=== PATIENT | male | born 2005 | race Caucasian/White ===

== ENCOUNTER 2024-05-09 14:29 | Emergency (ER) | payer BC, SELFPAY ==
[2024-05-09 14:44] VITALS: BP 120/57; PULSE 108; RESP 16; TEMP 36.6; O2SAT 100
--- NOTE | 2024-05-09 14:53 | ED.EYEPROB ---
HPI - Eye Problem General Chief complaint: Eye Problems Stated complaint: Eye Infection Time Seen by Provider: 05/09/24 14:53 Source: patient, RN notes reviewed and old records reviewed Mode of arrival: ambulatory Limitations: no limitations History of Present Illness HPI Narrative: 18-year-old male to Express Care for complaint of left eye irritation, redness, drainage for 2 days. Patient denies injury, foreign body, recent illness, visual changes, pertinent medical history. Patient resting comfortably on exam table in no acute distress. Respirations even and nonlabored. Related Data Home Medications Medication Instructions Recorded Confirmed insulin lispro 100 unit/mL 1 sliding scale dose subcut 05/09/24 05/09/24 subcutaneous cartridge USEASDIRECTD Allergies Allergy/AdvReac Type Severity Reaction Status Date / Time No Known Allergies Allergy Verified 05/09/24 14:42 Review of Systems Review of Systems: All systems reviewed & are unremarkable except as noted in HPI and below Constitutional: Constitutional: Reports no additional constitutional complaints Eyes: Eyes: Reports as per HPI, Reports eye discharge ( Left) and Reports irritation ( left) ENT: Reports system reviewed and no additional complaints, except as documented Cardiovascular: Cardiovascular: Reports no additional cardiovascular complaints, Denies chest pain and Denies dyspnea Respiratory: Respiratory: Reports no additional respiratory complaints, Denies cough and Denies dyspnea Musculoskeletal: Musculoskeletal: Reports no additional musculoskeletal complaints Neurologic: Reports system reviewed and no additional complaints, except as documented Psychiatric: Psychiatric: Reports no additional psychiatric complaints PMFSH Comments At the time of my signature, I reviewed and agree with the nursing past medical, surgical, social, and family history. There is no relevant family history pertinent to the patient complaint. Exam Const: General: cooperative, healthy appearing, no acute distress, alert, uncomfortable and well nourished Nutritional Appearance: well nourished Orientation/consciousness: patient oriented x3 Limitations: no limitations HENMT: Head: normal to inspection Ears: external ears normal Face/Nose/Sinus: Normal external nose present, Normal nares present, normal facial exam, No erythema and No edema Face and sinus: normal facial exam, no erythema and no edema Mouth: Yes Normal oral and palatal mucosa present Eyes: Visual Marin: normal visual marin by confrontation Alignment and Position: alignment normal and position normal Periorbital: periorbital findings normal Eyelids: eyelids normal Conjunctivae: conjunctival abnormality left conjunctival injection diffuse and discharge purulent Sclera: scleral abnormality left scleral injection diffuse Pupils: Equal, round and reactive pupils present, Pupils normal by confrontation and Pupil accommodation reflex normal Neck: Neck: normal visual inspection, full ROM and no meningeal signs Chest: Chest palpation & inspection: normal inspection of the chest Resp: Effort & Inspection: normal respiratory effort and able to speak in complete sentences Cardio: Jugular venous distension: no JVD Back/Spine/Pelvis: Cervical Spine: cervical ROM normal Skin: General skin exam: normal color, no rashes or lesions noted and turgor normal Neuro: General: patient oriented x3, gait normal, moves all extremities and no meningeal signs Speech: normal speech Gait exam (Neuro): Normal gait present Extrem: General: normal to inspection, full ROM and capillary refill normal Psych: Appearance: grossly normal and well kempt Course Course Emergency Course: Some parts of this dictation were generated by voice recognition software and may contain typographical and/or grammatical inaccuracies. Level of Care: Express Care Visit Vital Signs Vital signs: Vital Signs Temperature 36.6 C
== END 2024-05-09 15:05 | disposition home or self-care (01) ==
PROVIDERS: Emergency Provider Nurse Practitioner Family
DX: H10.32 Unspecified acute conjunctivitis, left eye (principal); E11.9 Type 2 diabetes mellitus without complications; Z79.4 Long term (current) use of insulin
CPT/HCPCS: 99203; G0463

== ENCOUNTER 2025-06-29 17:17 | Emergency (ER) | payer BC, SELFPAY ==
--- NOTE | ~2025-06-29 | XR_ITS ---
EXAMINATION: XR foot LT min 3V, 06/29/2025 17:30 PLATFORM INSPECTOR HISTORY: PAIN, BRUiSING OF FOOT COMPARISON: No comparisons available. Findings: No acute fracture or malalignment. No significant degenerative changes. Soft tissues unremarkable. Impression: No acute fracture or malalignment. Reviewed, dictated and finalized at location P. FORM INSPECTOR Impression: No acute fracture or malalignment.
--- NOTE | ~2025-06-29 | XR_ITS ---
EXAMINATION: XR ankle LT min 3V, 06/29/2025 17:30 RESTAURANT CREW MEMBER HISTORY: injury roller skating, pain, swelling lateral ankle COMPARISON: No comparisons available. Findings: Nondisplaced fracture of the distal fibula. No significant degenerative changes. Soft tissue swelling. Impression: Distal fibular fracture Reviewed, dictated and finalized at location P. AURANT CREW MEMBER Impression: Distal fibular fracture
[2025-06-29 17:20] VITALS: BP 138/86; PULSE 82; RESP 16; TEMP 36.4; O2SAT 99
--- NOTE | 2025-06-29 18:00 | ED.LOWEXIN ---
HPI - Extremity Injury (Lower) General Chief Complaint: Extremity Injury, Lower Stated Complaint: L Ankle Pain Time Seen by Provider: 06/29/25 17:40 Source: patient, RN notes reviewed and old records reviewed Mode of arrival: ambulatory Limitations: no limitations History of Present Illness HPI Narrative: 20 year old male presents to [facility] with complaints of pain to his left ankle and foot with swelling and bruising noted to lateral aspect since falling while he was roller skating on Sunday. Patient reports that he has increased pain with ambulation and movement of his left ankle. He has been applying ice to his left ankle and also has been taking Ibuprofen for his discomfort.Patient has strong left pedal pulse has no tingling or numbness to his left foot or toes, positive for palpable tenderness to left lateral ankle. Patient is Type I diabetic and has insulin pump. MD complaint: ankle injury Onset (ago): day(s) (3) Type of Injury: other (fall while roller skating) Severity scale (1-10): 3 Exacerbating factors: weight bearing and movement Treatments prior to arrival: cold therapy and NSAIDS Related Data Home Medications ?Medication ?Instructions ?Recorded ?Confirmed ?Last Taken ?Type insulin lispro 100 unit/mL 1 sliding scale dose subcut 05/09/24 06/29/25 Unknown History subcutaneous cartridge USEASDIRECTD Allergies Allergy/AdvReac Type Severity Reaction Status Date / Time No Known Allergies Allergy Verified 06/29/25 17:34 Review of Systems Review of Systems: CONSTITUTIONAL: Denies fever, chills, or sweats. EYES: Denies visual changes, redness, or discharge. ENT: Denies rhinorrhea, congestion, sore throat, or otalgia. CARDIOVASCULAR: Denies chest pain, palpitations, or edema. RESPIRATORY: Denies cough or dyspnea. GASTROINTESTINAL: Denies abdominal pain, nausea, vomiting, or diarrhea. GENITOURINARY: Denies dysuria or hematuria. SKIN: Denies rash or itching. MUSCULOSKELETAL: Denies back pain, positive for left ankle pain with swelling and bruising noted to left ankle and foot lateral aspect with palpable tenderness to left lateral ankle., or myalgia. NEUROLOGIC: Denies headache, numbness, or weakness. PSYCHIATRIC: Denies anxiety or depression. All systems reviewed & are unremarkable except as noted in HPI and below [facility] Past Medical History Medical History (Updated 06/30/25 @ 22:08 by Dori Martini APRN) Type I diabetes mellitus Social History Social History (Updated 06/30/25 @ 22:08 by Dori Martini APRN) Smoking status: Never smoker Alcohol intake: current Alcohol use details: rare Substance use type: does not use Occupation/Education: student Gender identity (if verbalized by the patient): Male Comments At time of signature, agree with nursing past medical, surgical, social and family history. There is no relevant family history pertinent to the presenting complaint Exam Narrative: GENERAL: Well-appearing, well-nourished, and in no acute distress. HEAD: Normocephalic, atraumatic. EYES: PERRLA and EOMI. ENT: Nares clear, no rhinorrhea or epistaxis. Mucous membranes moist. NECK: Supple.no lymphadenopathy CHEST: Clear to auscultation. No respiratory distress.SAO2 99% on room air HEART: Regular rate and rhythm. No murmur heard. Normal peripheral pulses. ABDOMEN: Soft, nontender, nondistended, normal active bowel sounds. EXTREMITIES: Normal range of motion. No edema.Exception noted to left ankle and left foot with bruising and swelling noted mainly to lateral aspect with palpable tenderness to lateral left ankle, Strong left pedal pulse, no tingling or numbness with brisk capillary refill to nail beds left foot.Reports fell while roller skating on Sunday with injury to ankle SKIN: Warm, dry, no rash. NEURO: No focal deficits. Alert and oriented x3. Course Course Emergency Course: Patient is aware of diagnosis, understands and agrees to treatment plan.? Anticipatory guidance given.? Patient agrees to follow-up as directed and is aware of reasons to seek care at the emergency department. Portions of this record may have been created with voice recognition software Level of Care: Express Care Visit Vital Signs Vital signs: Vital Signs Temperature 36.4 C 06/29/25 17:20 Pulse Rate 82 06/29/25 17:20 Respiratory Rate 16 06/29/25 17:20 Blood Pressure 138/86 06/29/25 17:20 Pulse Oximetry 99 06/29/25 17:20 Oxygen Delivery Room Air 06/29/25 17:20 Temperature 36.4 C 06/29/25 17:20 Pulse Rate 82 06/29/25 17:20 Respiratory Rate 16 06/29/25 17:20 Blood Pressure 138/86 06/29/25 17:20 Pulse Oximetry 99 06/29/25 17:20 Oxygen Delivery Room Air 06/29/25 17:20 Reviewed Procedures Orthopedic Splinting/Casting ankle: Splinting/Casting Date: 06/29/25 Splinting/Casting Time: 18:29 Side: left Lower Extremity Injury Location: ankle Lower Extremity Immobilizer: posterior splint Splint: customized in ED OCL: short leg Pre-Procedure Neuro Vascular Exam: normal Post-Procedure Neuro Vascular Exam: normal Other Orthopedic Equipment: crutches Additional Comments: Patient tolerated splinting of left ankle with application of short leg posterior fiberglass splint with circulation intact. Patient received crutch training in the clinic and was able to demonstrate return demonstration of NWB gait left foot. MDM - Extremity Injury (Lower) Differential Diagnosis Differential diagnosis: Likely ankle sprain and strain, ankle fracture and other (foot sprain, left fibula fracture) Medical Records Attestation: I reviewed the patient's medical records. Imaging Data Attestation: I personally reviewed and interpreted this imaging study as follows: My impression: no fracture to left foot, non displaced fracture of the distal fibula left ankle Radiologist's impression: [place] [address] XRay Report Signed Patient: Jesse Kim : 2005 MR#: [id number] Age: 20 Acct:[id number] Loc: [facility] ADM Date: 06/29/[address]: Ordering Physician: Dori Martini APRN Date of Service: 06/29/25 Procedure(s): XR ankle LT min 3V Accession Number(s): [id number] cc: PAINTING AND COATING WORKER PHYSICIAN; Dori Martini APRN~ EXAMINATION: XR ankle LT min 3V, 06/29/2025 17:30 SUPERVISOR BOARDING HISTORY: injury roller skating, pain, swelling lateral ankle COMPARISON: No comparisons available. Findings: Nondisplaced fracture of the distal fibula. No significant degenerative changes. Soft tissue swelling. Impression: Distal fibular fracture Reviewed, dictated and finalized at location P. RVISOR BOARDING Please be advised this is a medical document. It is intended for [id number] communication. It is written in medical language and may contain unfamiliar abbreviations or verbiage. Medical documents are intended to carry relevant information, facts as evident, and the clinical opinion of the practitioner at the time of the encounter. This report may have been done utilizing a voice recognition system. Attempts have been made to correct errors. However, there may be uncorrected grammatical, spelling, and recognition errors present. The file time of this note does not necessarily represent the time of service. Dictated By: Tom Arredondo MD 06/29/25 1748 Signed By: <Electronically signed by Tom Arredondo MD in OV> [place] [address] XRay Report Signed Patient: Jesse Kim : 2005 MR#: [id number] Age: 20 Acct:[id number] Loc: [facility] ADM Date: 06/29/[address]: Ordering Physician: Dori Martini APRN Date of Service: 06/29/25 Procedure(s): XR foot LT min 3V Accession Number(s): [id number] cc: PAINTING AND COATING WORKER PHYSICIAN; Dori Martini APRN~ EXAMINATION: XR foot LT min 3V, 06/29/2025 17:30 SUPERVISOR BOARDING HISTORY: PAIN, BRUiSING OF FOOT COMPARISON: No comparisons available. Findings: No acute fracture or malalignment. No significant degenerative changes. Soft tissues unremarkable. Impression: No acute fracture or malalignment. Reviewed, dictated and finalized at location P. RVISOR BOARDING Please be advised this is a medical document. It is intended for [id number]-[id number] communication. It is written in medical language and may contain unfamiliar abbreviations or verbiage. Medical documents are intended to carry relevant information, facts as evident, and the clinical opinion of the practitioner at the time of the encounter. This report may have been done utilizing a voice recognition system. Attempts have been made to correct errors. However, there may be uncorrected grammatical, spelling, and recognition errors present. The file time of this note does not necessarily represent the time of service. Dictated By: Tom Arredondo MD 06/29/25 4400 Signed By: <Electronically signed by Tom Arredondo MD in [place]> Critical Care Time Critical Care Time Critical Care Time: No Discharge Plan Discharge Clinical Impression: Fracture of distal end of fibula Qualifiers: Encounter type: initial encounter Fracture type: closed Fracture morphology: unspecified fracture morphology Laterality: left Qualified Code(s): S82.832A - Other fracture of upper and lower end of left fibula, initial encounter for closed fracture Patient Disposition: Home Condition: Stable Instructions: Antibiotic Form, Ankle Fracture (ED), Splint Care (ED) Additional Instructions: orthopedic splint as directed to 6 Crutches as directed if needed Tylenol for lesser pain Ibuprofen regularly for the next 2-3 days for the inflammation Follow-up with orthopedic surgeon as arranged by ortho control officer [phone] call office to set up appointment Follow-up with PCP if further problems or concerns Ice to the area 20-30 minutes 4-6 times a day Elevate above heart If your symptoms persist, change or worsen significantly before you can contact your personal physician then please, without delay, go to the emergency department for further evaluation. Follow-up with PCP in 7-10 days or sooner if needed Follow up with PCP soon in regards to your blood pressure which is elevated above threshold for referral. Blood pressure above 120/80 may indicate pre-hypertension. 138/86 Patient Language: Romanian Prescriptions: No Action insulin lispro 100 unit/mL Cartridge 1 sliding scale dose SUBCUT USEASDIRECTD ofloxacin 0.3 % drops See Rx Instructions .ROUTE .COMPLEX Qty: 10 0RF Rx Instructions: put 1-2 drps into affected eye(s) every 2-4 h x 2 days, then 1-2 drps 4 times/day days 3-7 Follow-up/Referrals: PHYSICIAN,PAINTING AND COATING WORKER [Primary Care Provider, Internal Medicine] Abdirashid Marsh MD [Physician, Orthopedics] - 3 Days Referral Note: non-displaced fracture of left fibula, placed in OCL splint needs follow up Stand Alone Forms: Work/School Release IP Time of Disposition: 18:36 Quality Sylvia Coma Scale Eyes: Open Verbal: Oriented and Alert Motor: Follows Commands [place] Coma Total Score: 15
== END 2025-06-29 18:55 | disposition home or self-care (01) ==
PROVIDERS: Emergency Provider Registered Nurse
DX: S82.832A Other fracture of upper and lower end of left fibula, initial encounter for closed fracture (principal); W19.XXXA Unspecified fall, initial encounter; Y93.51 Activity, roller skating (inline) and skateboarding; E11.9 Type 2 diabetes mellitus without complications; Z79.4 Long term (current) use of insulin
CPT/HCPCS: 29125; 73610; 73630; 99214; G0463